=== PATIENT | male | born 1970 | race Hispanic/Latino ===

== ENCOUNTER 2017-04-06 01:20 | Observation (INO) | payer SELFPAY ==
[2017-04-06 01:20] VITALS: BMI 27.0
--- NOTE | 2017-04-06 01:50 | ED PDOC ---
Arrival/HPI - General Chief Complaint: Medical Clearance Time Seen by Provider: 04/06/17 01:33 Historian: Patient - History of Present Illness Narrative History of Present Illness (Text): 04/06/17 01:47 Iglesia Babb is a 46 year old male, whose past medical history includes NSTEMI s/p stent placement, hyperlipidemia, and hypertension, presents to the emergency department complaining of shock like sensation to chest and arm tonight. Reports that some of his symptoms are similar to when he was diagnosed with UT. Patient states he also has a history of TIA. Denies any SOB. Denies fever, headache, nausea, vomiting, diarrhea, urinary symptoms or any other complaints at this time. Time/Duration: 1 hour Symptom Onset: Sudden Symptom Course: Unchanged Severity Level: Mild Activities at Onset: Light Past Medical History - Provider Review Nursing Documentation Reviewed: Yes - Cardiac Hx Hypertension: Yes - Pulmonary Hx Respiratory Disorders: No - Neurological Hx Transient Ischemic Attacks (TIA): Yes (current admission 11/09/16) - HEENT Hx HEENT Disorder: No - Renal Hx Renal Disorder: No - Endocrine/Metabolic Hx Endocrine Disorders: No - Hematological/Oncological Hx Blood Disorders: No - Integumentary Hx Dermatological Disorder: No - Musculoskeletal/Rheumatological Hx Musculoskeletal Disorders: No Hx Falls: No - Gastrointestinal Hx Gastrointestinal Disorders: No Hx Gastroesophageal Reflux: Yes - Genitourinary/Gynecological Hx Genitourinary Disorders: No - Psychiatric Hx Psychophysiologic Disorder: No Hx Substance Use: No - Surgical History Hx Cholecystectomy: Yes Hx Open Heart Surgery: Yes (1 stent) Family/Social History - Physician Review Nursing Documentation Reviewed: Yes Family/Social History: No Known Family HX Smoking Status: Heavy Smoker > 10 Cigarettes Daily Hx Alcohol Use: Yes (social) Hx Substance Use: No Allergies/Home Meds Allergies/Adverse Reactions: Allergies No Known Allergies Allergy (Verified 04/06/17 01:29) Home Medications: Home Meds Medication Instructions Recorded Confirmed Aspirin [Ecotrin] 81 mg PO DAILY 11/08/16 04/06/17 Atorvastatin Calcium 40 mg PO DAILY 11/08/16 04/06/17 Clopidogrel [Plavix] 75 mg PO DAILY 11/08/16 04/06/17 Metoprolol Tartrate [Lopressor] 25 mg PO DAILY 11/08/16 04/06/17 Review of Systems - Physician Review All systems were reviewed & negative as marked: Yes - Review of Systems Constitutional: Normal. absent: Fatigue, Fevers Respiratory: Normal. absent: SOB, Cough, Sputum Cardiovascular: Chest Pain ("shock like sensation" ). absent: Palpitations Gastrointestinal: Normal. absent: Abdominal Pain, Diarrhea, Nausea, Vomiting Musculoskeletal: Other (shock like sensation in the upper extremities. ) Neurological: Normal. absent: Headache, Dizziness Psychiatric: Normal Physical Exam Vital Signs Reviewed: Yes Vital Signs Temp Pulse Resp BP Pulse Ox 04/06/17 04:00 76 17 109/68 98 04/06/17 02:18 81 19 112/77 100 04/06/17 01:31 98.4 F 82 20 100 Temperature: Afebrile Blood Pressure: Normal Pulse: Regular Respiratory Rate: Normal Appearance: Positive for: Well-Appearing, Non-Toxic, Comfortable Pain Distress: None Mental Status: Positive for: Alert and Oriented X 3 - Systems Exam Head: Present: Atraumatic, Normocephalic Pupils: Present: PERRL Extroacular Muscles: Present: EOMI Conjunctiva: Present: Normal Mouth: Present: Moist Mucous Membranes Neck: Present: Normal Range of Motion Respiratory/Chest: Present: Clear to Auscultation, Good Air Exchange. No: Respiratory Distress, Accessory Muscle Use Cardiovascular: Present: Regular Rate and Rhythm, Normal S1, S2. No: Murmurs Abdomen: Present: Normal Bowel Sounds. No: Tenderness, Distention, Peritoneal Signs Upper Extremity: Present: Normal Inspection. No: Cyanosis, Edema Lower Extremity: Present: Normal Inspection. No: Edema Neurological: Present: GCS=15, CN II-XII Intact, Speech Normal, Motor Func Grossly Intact, Normal Sensory Function Skin: Present: Warm, Dry, Normal Color. No: Rashes Psychiatric: Present: Alert, Oriented x 3, Normal Insight, Normal Concentration , Anxious Medical Decision Making ED Course and Treatment: 04/06/17 01:51 Impression: A 46 year old male who presents to the ed for evaluation of shock like sensation in the chest and arms Plan: -- EKG -- Labs, cardiac enzymes -- CXR -- Aspirin -- Ativan Progress Notes: 04/06/17 03:00 EKG interpreted by me: NSR @ 90 bpm. Normal axis. Normal interval. Case discussed with Dr. Aquino who is aware and agrees with the plan to observe patient at telemetry for chest pain. Accepts patient under hospitalist service. - Lab Interpretations Lab Results: 04/06/17 01:50 04/06/17 01:50 Lab Results 04/06/17 01:50: WBC 7.5, RBC 5.21, Hgb 15.9, Hct 44.2, MCV 84.8, MCH 30.5, MCHC 36.0, RDW 13.0, Plt Count 211, MPV 9.4 04/06/17 01:50: Sodium 141, Potassium 3.5 L, Chloride 107, Carbon Dioxide 23, Anion Gap 15, BUN 15, Creatinine 1.2, Est GFR ( Amer) > 60, Est GFR (Non- Af Amer) > 60, Random Glucose 100, Calcium 9.4, Total Bilirubin 0.5, AST 32, ALT 29, Alkaline Phosphatase 66, Lactate Dehydrogenase 434, Total Creatine Kinase 122, Troponin I < 0.01, Total Protein 7.1, Albumin 4.2, Globulin 2.9, Albumin/Globulin Ratio 1.4 04/06/17 01:50: PT 10.9, INR 1.01, APTT 26.8 - RAD Interpretation Radiology Orders: 04/06/17 01:45 CHEST PORTABLE [RAD] Stat - Medication Orders Current Medication Orders: Discontinued Medications Aspirin (Aspirin) 325 mg PO ONCE STA Stop: 04/06/17 01:48 Last Admin: 04/06/17 02:09 Dose: Not Given Non-Admin Reason: Patient Refused Lorazepam (Ativan) 1 mg IVP ONCE ONE Stop: 04/06/17 01:47 Last Admin: 04/06/17 02:09 Dose: 1 mg - Compa Statement The provider has reviewed the documentation as recorded by the Compa Ward Provider Attestation: All medical record entries made by the Compa were at my direction and personally dictated by me. I have reviewed the chart and agree that the record accurately reflects my personal performance of the history, physical exam, medical decision making, and the department course for this patient. I have also personally directed, reviewed, and agree with the discharge instructions and disposition. Disposition/Present on Arrival - Present on Arrival Any Indicators Present on Arrival: No History of DVT/PE: No History of Uncontrolled Diabetes: No Urinary Catheter: No History of Decub. Ulcer: No History Surgical Site Infection Following: None - Disposition Have Diagnosis and Disposition been Completed?: Yes Diagnosis: Chest pain Disposition: HOSPITALIZED Disposition Time: 02:57 Patient Plan: Observation Patient Problems: Current Active Problems Problem Status Onset Chest pain Acute Condition: STABLE
[2017-04-06 02:10] LABS: HEMOGLOBIN 15.9 gm/dL (14.0-18.0); MEAN CELL VOLUME 84.8 fL (80.0-105.0); MEAN CORPUSCULAR HEMOGLOBIN 30.5 pg (25.0-35.0); MEAN PLATELET VOLUME 9.4 fl (7.0-11.0); RBC 5.21 10^6/uL (3.5-6.1); WHITE BLOOD COUNT 7.5 10^3/ul (4.5-11.0)
[2017-04-06 02:15] LABS: ALB/GLOB RATIO 1.4 (1.1-1.8); ALBUMIN 4.2 g/dL (3.0-4.8); ALT/SGPT 29 U/L (7-56); AST/SGOT 32 U/L (15-59); BLOOD UREA NITROGEN 15 mg/dL (7-21); CALCIUM 9.4 mg/dL (8.4-10.5); GFR AFRICAN-AMERICAN > 60; GFR NON-AFRICAN AMERICAN > 60
[2017-04-06 02:18] LABS: INR 1.01 (0.93-1.08); PARTIAL THROMBOPLASTIN TIME 26.8 Seconds (23.7-30.8); PROTHROMBIN TIME 10.9 Seconds (9.9-11.8)
[2017-04-06 02:29] LABS: TROPONIN I < 0.01 ng/mL
[2017-04-06 04:34] VITALS: O2SAT 98
[2017-04-06] MEDS ORDERED: Potassium Chloride 20 mEq/15 ml LIQ UD PO STA (05:59)
--- NOTE | 2017-04-06 05:59 | CP.PCM.HP ---
History of Present Illness - History of Present Illness History of Present Illness: CC: Numbness and tingling in the extremities x 1 day HPI: 46 y/o male with a PMHx HTN, CAD s/p MATIAS to the LAD on 04/08/16, ?TIA presents to the ED with the complaint of numbness and tingling in his extremities which began approximately 1 hour prior to arrival. Patient reports he was sitting down resting when the symptoms started and also complained of some chest discomfort and difficulty breathing so he came to the ED. He states having weakness in his arms and legs which has improved since he has slept in the ED and woken up. He denies any current complaints of shortness of breath, chest pain, abdominal pain, nausea, vomiting, headache, fever, chills, weakness , dizziness or headache. In the ED he was treated with ASA and Ativan IV. PMHx: Htn Dyslipidemia CAD s/p MATIAS around this time last year ?TIA earlier this year Fam Hx: Mother - Hodgkin's lymphoma and AML Soc Hx: 1 ppd x 30yrs; denies etoh use; denies illicit drug use Meds: ASA Plavix Atorvastatin Metoprolol Allergies: NKDA Present on Admission - Present on Admission Any Indicators Present on Admission: No Review of Systems - Review of Systems Review of Systems: As per HPI otherwise negative for a 10 point ROS Past Patient History - Past Social History Smoking Status: Heavy Smoker > 10 Cigarettes Daily - CARDIAC Hx Hypertension: Yes - PULMONARY Hx Respiratory Disorders: No - NEUROLOGICAL Hx Transient Ischemic Attacks (TIA): Yes (current admission 11/09/16) - HEENT Hx HEENT Problems: No - RENAL Hx Chronic Kidney Disease: No - ENDOCRINE/METABOLIC Hx Endocrine Disorders: No - HEMATOLOGICAL/ONCOLOGICAL Hx Blood Disorders: No - INTEGUMENTARY Hx Dermatological Problems: No - MUSCULOSKELETAL/RHEUMATOLOGICAL Hx Musculoskeletal Disorders: No Hx Falls: No - GASTROINTESTINAL Hx Gastrointestinal Disorders: No Hx Gastroesophageal Reflux: Yes - GENITOURINARY/GYNECOLOGICAL Hx Genitourinary Disorders: No - PSYCHIATRIC Hx Psychophysiologic Disorder: No Hx Substance Use: No - SURGICAL HISTORY Hx Cholecystectomy: Yes Hx Open Heart Surgery: Yes (1 stent) Meds Allergies/Adverse Reactions: Allergies Allergy/AdvReac Type Severity Reaction Status Date / Time No Known Allergies Allergy Verified 04/06/17 01:29 Physical Exam - Constitutional Appears: Well, Non-toxic, No Acute Distress - Head Exam Head Exam: ATRAUMATIC, NORMOCEPHALIC - Eye Exam Eye Exam: EOMI - ENT Exam ENT Exam: Mucous Membranes Moist - Respiratory Exam Respiratory Exam: Clear to Auscultation Bilateral, NORMAL BREATHING PATTERN. absent: Rales, Rhonchi, Wheezes - Cardiovascular Exam Cardiovascular Exam: REGULAR RHYTHM, +S1, +S2. absent: Systolic Murmur - GI/Abdominal Exam GI & Abdominal Exam: Normal Bowel Sounds, Soft. absent: Guarding, Rebound, Tenderness - Rectal Exam Rectal Exam: Deferred - Extremities Exam Extremities exam: Positive for: normal inspection. Negative for: calf tenderness - Neurological Exam Neurological exam: Alert, Oriented x3 Additional comments: 5/5 strength bilaterally - Psychiatric Exam Psychiatric exam: Normal Affect, Normal Mood - Skin Skin Exam: Dry, Intact, Normal Color, Warm Results - Vital Signs Recent Vital Signs: Last Vital Signs Temp 98.4 F 04/06/17 01:31 Pulse 76 04/06/17 05:15 Resp 17 04/06/17 05:15 BP 114/70 04/06/17 05:15 Pulse Ox 98 04/06/17 05:15 - Labs Result Diagrams: 04/06/17 01:50 04/06/17 01:50 - EKG Data EKG Interpreted by: Myself EKG shows normal: Sinus rhythm Rate: Normal Assessment & Plan - Assessment and Plan (Free Text) Assessment: 46 y/o male with a PMHx CAD. Htn, ?TIA presents to the ER with the complaint of numbness and tingling in his extremities coupled with shortness of breath which he states was similar to his NSTEMI last year. Patient will be observed for possible ACS. Plan: 1) Chest pain - rule out acs: will cycle cardiac iso x3, c/w home meds; SL NTG prn; check urine drug screen; will defer to the daytime hospitalist regarding possible cardiology consultation if needed. Currently normal troponin and no EKG changes 2) Parasthesia - unexplained at this time; unclear why a CT Head was not done in the ER, I will order one now; c/w ASA and monitor for recurrence. Check B12 level as well 3) GI/DVT ppx - po diet/SCD's
--- NOTE | 2017-04-06 08:46 | CARD ---
APPROVED REPORT EKG Measurement Heart [id number] IN 118P-8 [id number] <Conclusion> Normal sinus rhythm Normal ECG
--- NOTE | 2017-04-06 11:00 | RAD ---
HISTORY: pain COMPARISON: 11/09/2016 FINDINGS: LUNGS: Examination limited. Lateral left base and left costophrenic angle are excluded from this examination. No consolidation. PLEURA: No significant pleural effusion identified, no pneumothorax apparent. CARDIOVASCULAR: Normal. OSSEOUS STRUCTURES: No significant abnormalities. VISUALIZED UPPER ABDOMEN: Normal. OTHER FINDINGS: None. IMPRESSION: Normal limited examination.
--- NOTE | 2017-04-06 11:02 | CP.PCM.CON ---
History of Present Illness - History of Present Illness History of Present Illness: Requesting physician: Dr. Grimm This is a 46-year-old man well-known to me with a history of coronary artery disease status post prior myocardial infarction and PCI last year who presented with complaints of bilateral arm pain and paresthesias. He became concerned and presented to the emergency room. Initial cardiac enzymes have been negative electrocardiogram was unremarkable. Since his infarct, he has continued to smoke. He claims compliance with his medications. Review of Systems - Constitutional Constitutional: As Per HPI - EENT Nose/Mouth/Throat: As Per HPI - Cardiovascular Cardiovascular: Dyspnea, Pain Radiating to Arm/Neck/Jaw - Respiratory Respiratory: As Per HPI - Gastrointestinal Gastrointestinal: As Per HPI - Musculoskeletal Musculoskeletal: Radiating Pain into Limb - Neurological Neurological: Paresthesias Past Patient History - Past Medical History & Family History Past Medical History?: Yes Past Family History: Reviewed and not pertinent - Past Social History Smoking Status: Heavy Smoker > 10 Cigarettes Daily - CARDIAC Hx Cardiac Disorders: Yes Hx Angina: Yes Hx Heart Attack: Yes Hx Hypercholesterolemia: Yes Hx Hypertension: Yes Other/Comment: status post PCI - PULMONARY Hx Respiratory Disorders: No Hx Bronchitis: Yes - NEUROLOGICAL Hx Transient Ischemic Attacks (TIA): Yes - HEENT Hx HEENT Problems: No - RENAL Hx Chronic Kidney Disease: No - ENDOCRINE/METABOLIC Hx Endocrine Disorders: No - HEMATOLOGICAL/ONCOLOGICAL Hx Blood Disorders: No - INTEGUMENTARY Hx Dermatological Problems: No - MUSCULOSKELETAL/RHEUMATOLOGICAL Hx Musculoskeletal Disorders: No Hx Falls: No - GASTROINTESTINAL Hx Gastrointestinal Disorders: No Hx Gastroesophageal Reflux: Yes - GENITOURINARY/GYNECOLOGICAL Hx Genitourinary Disorders: No - PSYCHIATRIC Hx Psychophysiologic Disorder: No Hx Substance Use: No - SURGICAL HISTORY Hx Cholecystectomy: Yes Hx Coronary Stent: Yes Meds Allergies/Adverse Reactions: Allergies Allergy/AdvReac Type Severity Reaction Status Date / Time No Known Allergies Allergy Verified 04/06/17 01:29 - Medications Medications: Current Medications Aspirin (Ecotrin) 81 mg PO DAILY [facility] Last Admin: 04/06/17 10:16 Dose: 81 mg Atorvastatin Calcium (Lipitor) 40 mg PO DAILY [facility] Last Admin: 04/06/17 10:16 Dose: 40 mg Clopidogrel Bisulfate (Plavix) 75 mg PO DAILY [facility] Last Admin: 04/06/17 10:16 Dose: 75 mg Metoprolol Tartrate (Lopressor) 25 mg PO DAILY [facility] Last Admin: 04/06/17 10:16 Dose: 25 mg Nitroglycerin (Nitrostat Sl Tab) 0.4 mg SL Q5MIN PRN PRN Reason: Pain, moderate (4-7) Physical Exam - Constitutional Appears: No Acute Distress - Neck Exam Neck exam: Positive for: Normal Inspection - Respiratory Exam Respiratory Exam: Rhonchi (bilateral) - Cardiovascular Exam Cardiovascular Exam: REGULAR RHYTHM - GI/Abdominal Exam GI & Abdominal Exam: Normal Bowel Sounds, Soft. absent: Tenderness - Extremities Exam Extremities exam: Positive for: normal inspection - Neurological Exam Neurological exam: Alert, CN II-XII Intact, Normal Gait, Oriented x3, Reflexes Normal - Psychiatric Exam Psychiatric exam: Anxious - Skin Skin Exam: Dry, Intact, Normal Color, Warm Results - Vital Signs Recent Vital Signs: Last Vital Signs Temp 97.7 F 04/06/17 06:08 Pulse 71 04/06/17 10:16 Resp 20 04/06/17 06:08 BP 116/65 04/06/17 10:16 Pulse Ox 98 04/06/17 05:15 - Labs Result Diagrams: 04/06/17 01:50 04/06/17 01:50 Labs: Laboratory Results - last 24 hr 04/06/17 08:23 Troponin I < 0.01 - EKG Data EKG Interpreted by: Myself EKG shows normal: Sinus rhythm - EKG Data When Compared to Previous EKG: No Significant Change - Impressions Impression: no acute abnormalities - Imaging and Cardiology Chest x-ray Status: Report reviewed by me Assessment & Plan - Assessment and Plan (Free Text) Assessment: . Impression: * Limb paresthesias with no clear evidence of chest discomfort, doubt cardiac cause * Coronary artery disease status post remote myocardial infarction and PCI * Continued tobacco abuse. Plan: . Recommendations: * If third set of cardiac enzymes is negative, can discharge home. * Strongly encouraged complete smoking abstinence. * Will arrange for outpatient nuclear stress test. * Outpatient followup will be arranged as well. * Continued risk factor control was advised. * Continued aspirin and Plavix therapy was advised as well. - Date & Time Date: 04/06/17 Time: 11:00
[2017-04-06 11:38] VITALS: BP 117/69; PULSE 65; RESP 18; TEMP 98.6
--- NOTE | 2017-04-06 12:11 | CT ---
PROCEDURE: CT HEAD WITHOUT CONTRAST. HISTORY: evaluate for cva COMPARISON: 11/08/2016 TECHNIQUE: Axial computed tomography images were obtained through the head/brain without intravenous contrast. Radiation dose: Total exam DLP = 725.84 mGy-cm. This CT exam was performed using one or more of the following dose reduction techniques: Automated exposure control, adjustment of the mA and/or kV according to patient size, and/or use of iterative reconstruction technique. FINDINGS: HEMORRHAGE: No intracranial hemorrhage. BRAIN: No mass effect or edema. No atrophy or chronic microvascular ischemic changes. VENTRICLES: Unremarkable. No hydrocephalus. CALVARIUM: Unremarkable. PARANASAL SINUSES: Very small left sphenoid retention cyst/polyp. MASTOID AIR CELLS: Unremarkable as visualized. No inflammatory changes. OTHER FINDINGS: None. IMPRESSION: No evidence of acute infarct. No intracranial mass or hemorrhage. Very small left sphenoid retention cyst/polyp. No interval change from 11/08/2016.
[2017-04-06 14:52] LABS: TROPONIN I < 0.01 ng/mL
--- NOTE | 2017-04-06 16:21 | CP.PCM.DIS ---
<JUNA SILVA - Last Filed: 04/06/17 17:36> Provider - Provider Date of Admission: 04/06/17 02:59 Attending physician: Kiim Grimm MD Primary care physician: Yohan Chauhan MD Consults: Cardiology- Dr. Ruben Garrett Time Spent in preparation of Discharge (in minutes): 45 Hospital Course - Lab Results Lab Results: Most Recent Lab Values WBC 7.5 10^3/ul (4.5-11.0) 04/06/17 01:50 RBC 5.21 10^6/uL (3.5-6.1) 04/06/17 01:50 Hgb 15.9 gm/dL (14.0-18.0) 04/06/17 01:50 Hct 44.2 % (42.0-52.0) 04/06/17 01:50 MCV 84.8 fL (80.0-105.0) 04/06/17 01:50 MCH 30.5 pg (25.0-35.0) 04/06/17 01:50 MCHC 36.0 g/dl (31.0-37.0) 04/06/17 01:50 RDW 13.0 % (11.5-14.5) 04/06/17 01:50 Plt Count 211 10^3/uL (120.0-450.0) 04/06/17 01:50 MPV 9.4 fl (7.0-11.0) 04/06/17 01:50 PT 10.9 Seconds (9.9-11.8) 04/06/17 01:50 INR 1.01 (0.93-1.08) 04/06/17 01:50 APTT 26.8 Seconds (23.7-30.8) 04/06/17 01:50 Sodium 141 mmol/L (132-148) 04/06/17 01:50 Potassium 4.0 mmol/L (3.6-5.0) 04/06/17 14:27 Chloride 107 mmol/L (98-107) 04/06/17 01:50 Carbon Dioxide 23 mmol/L (21-33) 04/06/17 01:50 Anion Gap 15 (10-20) 04/06/17 01:50 BUN 15 mg/dL (7-21) 04/06/17 01:50 Creatinine 1.2 mg/dL (0.5-1.4) 04/06/17 01:50 Est GFR ( Amer) > 60 04/06/17 01:50 Est GFR (Non-Af Amer) > 60 04/06/17 01:50 Random Glucose 100 mg/dL (70-110) 04/06/17 01:50 Calcium 9.4 mg/dL (8.4-10.5) 04/06/17 01:50 Total Bilirubin 0.5 mg/dL (0.2-1.3) 04/06/17 01:50 AST 32 U/L (15-59) 04/06/17 01:50 ALT 29 U/L (7-56) 04/06/17 01:50 Alkaline Phosphatase 66 U/L (38-133) 04/06/17 01:50 Lactate Dehydrogenase 434 U/L (333-699) 04/06/17 01:50 Total Creatine Kinase 122 U/L (35-230) 04/06/17 01:50 Troponin I < 0.01 ng/mL 04/06/17 14:27 Total Protein 7.1 g/dL (5.8-8.3) 04/06/17 01:50 Albumin 4.2 g/dL (3.0-4.8) 04/06/17 01:50 Globulin 2.9 gm/dL 04/06/17 01:50 Albumin/Globulin Ratio 1.4 (1.1-1.8) 04/06/17 01:50 Vitamin B12 520 pg/mL (239-931) 04/06/17 08:23 - Hospital Course Hospital Course: 46 y/o male with a PMHx HTN, CAD s/p MATIAS to the LAD on 04/08/16, TIA presents to the ED with the complaint of numbness and tingling in his extremities which began approximately 1 hour prior to arrival. Due to chest pain, patients troponin was trended 3 times and found to be negative. An EKG showed normal sinus rhythm and a chest X-Ray was normal. Cardiology was consulted and recommended cessation of smoking, as well as continued aspirin and plavix therapy. Dr. Garrett arranged for outpatient nuclear stress test and outpatient follow up. Due to the parathesia exprienced, a head CT was done to rule out a CVA and was unremarkable for acute infarct. A level of Vitamin B12 was also taken to rule out this being a cause for the parasthesia symptoms and was found to be within normal limits. For DVT prophylaxis, SCD's were placed on patient. - Date & Time of H&P Date of H&P: 04/06/17 Time of H&P: 05:50 Discharge Exam - Head Exam Head Exam: ATRAUMATIC, NORMOCEPHALIC - Eye Exam Eye Exam: EOMI, Normal appearance - ENT Exam ENT Exam: Mucous Membranes Moist, Normal Exam - Neck Exam Neck exam: Full Rom - Respiratory Exam Respiratory Exam: NORMAL BREATHING PATTERN, UNREMARKABLE. absent: Rales, Rhonchi, Wheezes, Respiratory Distress - Cardiovascular Exam Cardiovascular Exam: REGULAR RHYTHM, RRR, +S1, +S2 - GI/Abdominal Exam GI & Abdominal Exam: Normal Bowel Sounds, Unremarkable - Neurological Exam Neurological exam: Alert, Oriented x3 - Psychiatric Exam Psychiatric exam: Normal Affect, Normal Mood - Skin Skin Exam: Dry, Intact, Normal Color, Warm Discharge Plan - Follow Up Plan Condition: STABLE Disposition: HOME/ ROUTINE Instructions: Clopidogrel (By mouth), Cardiac Stress Test (GEN), Chest Pain ( GEN), How to Stop Smoking (GEN), Heart Healthy Diet (GEN), Cigarette Smoking and Your Health (GEN), Cholesterol and Your Health (GEN) Additional Instructions: 1. Follow up with your primary doctor within 1 week of discharge and follow with Dr. Garrett (animal trainer supervisor) for outpatient stress test. 2. Continue to take your medications as instructed. 3. Return to the emergency room should your feel ill or your symptoms worsen. Diet: heart healthy and low cholesterol diet Patient refuses pneumococcal vaccine at present time and flu vaccine "not in season". Referrals: Yohan Chauhan MD [Primary Care Provider] - <Kimi Grimm - Last Filed: 04/07/17 07:02> Provider - Provider Date of Admission: 04/06/17 02:59 Attending physician: Kimi Grimm MD Primary care physician: Yohan Chauhan MD Hospital Course - Lab Results Lab Results: Most Recent Lab Values WBC 7.5 10^3/ul (4.5-11.0) 04/06/17 01:50 RBC 5.21 10^6/uL (3.5-6.1) 04/06/17 01:50 Hgb 15.9 gm/dL (14.0-18.0) 04/06/17 01:50 Hct 44.2 % (42.0-52.0) 04/06/17 01:50 MCV 84.8 fL (80.0-105.0) 04/06/17 01:50 MCH 30.5 pg (25.0-35.0) 04/06/17 01:50 MCHC 36.0 g/dl (31.0-37.0) 04/06/17 01:50 RDW 13.0 % (11.5-14.5) 04/06/17 01:50 Plt Count 211 10^3/uL (120.0-450.0) 04/06/17 01:50 MPV 9.4 fl (7.0-11.0) 04/06/17 01:50 PT 10.9 Seconds (9.9-11.8) 04/06/17 01:50 INR 1.01 (0.93-1.08) 04/06/17 01:50 APTT 26.8 Seconds (23.7-30.8) 04/06/17 01:50 Sodium 141 mmol/L (132-148) 04/06/17 01:50 Potassium 4.0 mmol/L (3.6-5.0) 04/06/17 14:27 Chloride 107 mmol/L (98-107) 04/06/17 01:50 Carbon Dioxide 23 mmol/L (21-33) 04/06/17 01:50 Anion Gap 15 (10-20) 04/06/17 01:50 BUN 15 mg/dL (7-21) 04/06/17 01:50 Creatinine 1.2 mg/dL (0.5-1.4) 04/06/17 01:50 Est GFR ( Amer) > 60 04/06/17 01:50 Est GFR (Non-Af Amer) > 60 04/06/17 01:50 Random Glucose 100 mg/dL (70-110) 04/06/17 01:50 Calcium 9.4 mg/dL (8.4-10.5) 04/06/17 01:50 Total Bilirubin 0.5 mg/dL (0.2-1.3) 04/06/17 01:50 AST 32 U/L (15-59) 04/06/17 01:50 ALT 29 U/L (7-56) 04/06/17 01:50 Alkaline Phosphatase 66 U/L (38-133) 04/06/17 01:50 Lactate Dehydrogenase 434 U/L (333-699) 04/06/17 01:50 Total Creatine Kinase 122 U/L (35-230) 04/06/17 01:50 Troponin I < 0.01 ng/mL 04/06/17 14:27 Total Protein 7.1 g/dL (5.8-8.3) 04/06/17 01:50 Albumin 4.2 g/dL (3.0-4.8) 04/06/17 01:50 Globulin 2.9 gm/dL 04/06/17 01:50 Albumin/Globulin Ratio 1.4 (1.1-1.8) 04/06/17 01:50 Vitamin B12 520 pg/mL (239-931) 04/06/17 08:23 Attending/Attestation - Attestation I have personally seen and examined this patient.: Yes I have fully participated in the care of the patient.: Yes I have reviewed all pertinent clinical information, including history, physical exam and plan: Yes Notes (Text): 04/06/17 46 year old male with past medical history of hypertension, CAD s/p stent, and TIA who presented with complaint of chest pain and numbness/tingling in his extremities. He was admitted for observation at telemetry unit. Serial cardiac enzymes were negative and ACS was ruled out. He had mild hypokalemia which was repleted. CT head was negative and recent MRI brain and carotid dopplers were negative as well. Overall his symptoms improved. He was seen by cardiology who recommended outpatient stress test. Patient is discharged home to follow up with his pmd. Follow up with cardiology for outpatient stress test. Counselled on smoking cessation and alcohol abstinence. Kimi Grimm MD Hospitalist.
== END 2017-04-06 16:50 | disposition home or self-care (01) ==
LOC: ED 01:20 → ERH 02:59 → 2RSO 05:50
PROVIDERS: ADMIT Internal Medicine; ATTEND Internal Medicine
DX: R07.9 Chest pain, unspecified (principal); R20.0 Anesthesia of skin; I25.10 Atherosclerotic heart disease of native coronary artery without angina pectoris; I25.2 Old myocardial infarction; I10 Essential (primary) hypertension; E78.5 Hyperlipidemia, unspecified; F17.210 Nicotine dependence, cigarettes, uncomplicated; E87.6 Hypokalemia; Z86.73 Personal history of transient ischemic attack (TIA), and cerebral infarction without residual deficits; Z95.5 Presence of coronary angioplasty implant and graft; Z90.49 Acquired absence of other specified parts of digestive tract; Z79.02 Long term (current) use of antithrombotics/antiplatelets; Z79.82 Long term (current) use of aspirin; Z80.7 Family history of other malignant neoplasms of lymphoid, hematopoietic and related tissues
CPT/HCPCS: 70450; 71010; 80053; 82550; 82607; 83615; 84132; 84484; 85027; 85610; 85730; 93005; 96374; 99285; G0378; J2060

== ENCOUNTER 2017-06-07 19:29 | Emergency (ER) | payer SELFPAY ==
[2017-06-07 20:21] VITALS: RESP 16; TEMP 98.3; BMI 24.3
--- NOTE | 2017-06-07 21:45 | ED PDOC ---
Arrival/HPI - General Chief Complaint: Back Pain Time Seen by Provider: 06/07/17 20:31 Historian: Patient - History of Present Illness Narrative History of Present Illness (Text): 06/07/17 20:40 Iglesia Babb is a 47 year old male, whose past medical history includes NSTEMI s/p 1 stent in 2016, hyperlipidemia, hypertensino, and tobacco use, presents to the emergency department complaining of 1 week duration of right lower back pain. States that pain worsened today after lifting something heavy today. Denies any numbness/weakness to the extremities. Denies any fever, chills , headache, dizziness, chest pain, shortness of breath, nausea, vomiting, diarrhea, urinary symptoms, or any other complaints at this time. Time/Duration: 1 week Severity Level: Mild Activities at Onset: Light Context: Home Past Medical History - Provider Review Nursing Documentation Reviewed: Yes - Cardiac Hx Cardiac Disorders: Yes Hx Angina: Yes Hx VT: Yes Hx Hypertension: Yes Other/Comment: status post PCI - Pulmonary Hx Respiratory Disorders: No Hx Bronchitis: Yes - Neurological Hx Transient Ischemic Attacks (TIA): Yes - HEENT Hx HEENT Disorder: No - Renal Hx Renal Disorder: No - Endocrine/Metabolic Hx Endocrine Disorders: No - Hematological/Oncological Hx Blood Disorders: No - Integumentary Hx Dermatological Disorder: No - Musculoskeletal/Rheumatological Hx Musculoskeletal Disorders: No Hx Falls: No - Gastrointestinal Hx Gastrointestinal Disorders: No Hx Gastroesophageal Reflux: Yes - Genitourinary/Gynecological Hx Genitourinary Disorders: No - Psychiatric Hx Psychophysiologic Disorder: No Hx Substance Use: No - Surgical History Hx Cholecystectomy: Yes Hx Coronary Stent: Yes - Anesthesia Hx Anesthesia: Yes Hx Anesthesia Reactions: No Hx Malignant Hyperthermia: No Family/Social History - Physician Review Nursing Documentation Reviewed: Yes Family/Social History: No Known Family HX Smoking Status: Heavy Smoker > 10 Cigarettes Daily Hx Alcohol Use: No Hx Substance Use: No Allergies/Home Meds Allergies/Adverse Reactions: Allergies No Known Allergies Allergy (Verified 04/06/17 01:29) Home Medications: Home Meds Medication Instructions Recorded Confirmed Aspirin [Ecotrin] 81 mg PO DAILY 11/08/16 06/07/17 Atorvastatin Calcium 40 mg PO DAILY 11/08/16 06/07/17 Clopidogrel [Plavix] 75 mg PO DAILY 11/08/16 06/07/17 Metoprolol Tartrate [Lopressor] 25 mg PO DAILY 11/08/16 06/07/17 Review of Systems - Review of Systems Constitutional: Normal. absent: Fatigue, Fevers Respiratory: Normal. absent: SOB, Cough, Sputum Cardiovascular: Normal. absent: Chest Pain, Palpitations Musculoskeletal: Back Pain (right lower back pain ) Neurological: Normal. absent: Headache, Dizziness Psychiatric: Normal Physical Exam Vital Signs Reviewed: Yes Vital Signs Temp Pulse Resp BP Pulse Ox 06/07/17 23:09 82 16 120/78 100 06/07/17 20:20 98.3 F 84 16 119/55 L 98 Temperature: Afebrile Blood Pressure: Normal Pulse: Regular Respiratory Rate: Normal Appearance: Positive for: Well-Appearing, Non-Toxic, Comfortable Pain Distress: None Mental Status: Positive for: Alert and Oriented X 3 - Systems Exam Head: Present: Atraumatic, Normocephalic Pupils: Present: PERRL Conjunctiva: Present: Normal Mouth: Present: Moist Mucous Membranes Respiratory/Chest: Present: Clear to Auscultation, Good Air Exchange. No: Respiratory Distress, Accessory Muscle Use Cardiovascular: Present: Regular Rate and Rhythm, Normal S1, S2. No: Murmurs Abdomen: Present: Normal Bowel Sounds. No: Tenderness, Distention, Peritoneal Signs Back: Present: Normal Inspection. No: CVA Tenderness, Midline Tenderness, Paraspinal Tenderness Lower Extremity: Present: Normal Inspection. No: Edema Neurological: Present: GCS=15, CN II-XII Intact, Speech Normal, Motor Func Grossly Intact, Normal Sensory Function Skin: Present: Warm, Dry, Normal Color. No: Rashes Psychiatric: Present: Alert, Oriented x 3, Normal Insight, Normal Concentration Medical Decision Making ED Course and Treatment: 06/07/17 20:40 Impression: A 47 year old male who presents to the emergency department complaining of right lower back pain for 1 week. Pain worsened after lifting something heavy today. Plan: -- CT Lumbar Spine -- Flexeril -- Toradol -- Urinalysis -- Reassess and disposition Progress Notes: 06/07/17 22:48 EXAM: CT Lumbar Spine Without Intravenous Contrast Dictated and Authenticated by: Denisha Mcdowell MD FINDINGS: Vertebrae: Unremarkable. No acute fracture. Discs/spinal canal/neural foramina: Grade 1 Retrolisthesis of L5 on S1. Soft tissues: Unremarkable. IMPRESSION: Trace degenerative disease, without acute fracture. 06/07/17 23:07 On reevaluation, patient states that symptoms have improved post treatment. Patient is comfortable with the plan to be discharged home. Advised to present to emergency department for new/worsening symptoms and follow up with PMD within past few days. - RAD Interpretation Radiology Orders: 06/07/17 20:44 LUMBAR SPINE W/O CONTRAST [CT] Stat - Medication Orders Current Medication Orders: Discontinued Medications Cyclobenzaprine HCl (Flexeril) 10 mg PO STAT STA Stop: 06/07/17 20:44 Last Admin: 06/07/17 21:06 Dose: 10 mg Ketorolac Tromethamine (Toradol) 30 mg IM ONCE ONE Stop: 06/07/17 20:44 Last Admin: 06/07/17 21:06 Dose: 30 mg Oxycodone/Acetaminophen (Percocet 5/325 Mg Tab) 1 tab PO STAT STA Stop: 06/07/17 22:57 Last Admin: 06/07/17 23:09 Dose: 1 tab - Scribe Statement The provider has reviewed the documentation as recorded by the Compa Ward Provider Attestation: All medical record entries made by the Compa were at my direction and personally dictated by me. I have reviewed the chart and agree that the record accurately reflects my personal performance of the history, physical exam, medical decision making, and the department course for this patient. I have also personally directed, reviewed, and agree with the discharge instructions and disposition. Disposition/Present on Arrival - Present on Arrival Any Indicators Present on Arrival: No History of DVT/PE: No History of Uncontrolled Diabetes: No Urinary Catheter: No History of Decub. Ulcer: No History Surgical Site Infection Following: None - Disposition Have Diagnosis and Disposition been Completed?: Yes Diagnosis: Back pain at L4-L5 level Disposition: HOME/ ROUTINE Disposition Time: 23:10 Condition: GOOD Discharge Instructions (ExitCare): Back Pain (ED) Prescriptions: Cyclobenzaprine [Cyclobenzaprine HCl] 10 mg PO TID #16 tab oxyCODONE/Acetaminophen [Percocet 5/325 mg Tab] 1 ea PO QID #8 tab Referrals: PCP,NO [Primary Care Provider] - Follow up with primary Forms: [employer] (Sudanese), WORK NOTE
--- NOTE | 2017-06-07 22:40 | CT ---
EXAM: CT Lumbar Spine Without Intravenous Contrast CLINICAL HISTORY: 47 years old, male; Pain; Low back pain TECHNIQUE: Axial computed tomography images of the lumbar spine without intravenous contrast. All CT scans at this facility use one or more dose reduction techniques, viz.: automated exposure control; ma/kV adjustment per patient size (including targeted exams where dose is matched to indication; i.e. head); or iterative reconstruction technique. Coronal and sagittal reformatted images were created and reviewed. COMPARISON: US - CAROTID VERTEBRAL DUPLEX 11/09/2016 11:00:58 AM FINDINGS: Vertebrae: Unremarkable. No acute fracture. Discs/spinal canal/neural foramina: Grade 1 Retrolisthesis of L5 on S1. Soft tissues: Unremarkable. IMPRESSION: Trace degenerative disease, without acute fracture.
[2017-06-07] MEDS ORDERED: Oxycodone/Acetaminophen 5/325 mg Tab PO STA (22:56)
[2017-06-07 23:11] VITALS: BP 120/78; PULSE 82; O2SAT 100
== END 2017-06-07 23:11 | disposition home or self-care (01) ==
LOC: ED 19:29
DX: M54.5 Low back pain (principal); I10 Essential (primary) hypertension; E78.5 Hyperlipidemia, unspecified; F17.210 Nicotine dependence, cigarettes, uncomplicated
CPT/HCPCS: 72131; 96372; 99284; J1885